=== PATIENT | male | born 1995 | race Caucasian/White ===

== ENCOUNTER 2019-12-23 14:50 | Emergency (ER) | payer SELFPAY ==
[~2019-12-23] VITALS: Ht 182.9 cm; Wt 95.3 kg
[2019-12-23 14:51] VITALS: BP 140/75
--- NOTE | 2019-12-23 15:38 | NUR ---
PT UNCOOPERATIVE WITH HX.RX. ERMD AWARE.
[2019-12-23 15:44] VITALS: BP 140/75
--- NOTE | 2019-12-23 15:46 | NUR ---
Patient discharged with v/s stable. Written and verbal after care instructions given and explained. Patient verbalized understanding. Police with in custody. All questions addressed prior to discharge. Advised to follow up with PMD. GREEN MARKETING ANALYST SIGNED PAPERWORK OF [place]. COPY OF [place] REPORT KEPT IN FILE.
== END 2019-12-23 15:46 ==
LOC: MED 14:50
DX: T75.4XXA Electrocution, initial encounter (principal); Z02.89 Encounter for other administrative examinations; Y35.833A Legal intervention involving a conducted energy device, suspect injured, initial encounter; Y93.89 Activity, other specified; Y92.89 Other specified places as the place of occurrence of the external cause; Y99.8 Other external cause status
CPT/HCPCS: 93005; 99283